=== PATIENT | male | born 1955 | race Caucasian/White ===

== ENCOUNTER 2019-04-12 09:48 | Emergency (ER) | payer MEDICARE ==
[~2019-04-12] VITALS: Ht 167.6 cm; Wt 90.9 kg
[2019-04-12] MEDS ORDERED: MELO-107 PO (10:15)
[2019-04-12] MEDS ORDERED: HYDR25TA PO (10:15)
[2019-04-12] MEDS ORDERED: KETOROLAC TROMETHAMINE 30 MG/ML VIAL IM ONE (12:30)
[2019-04-12] MEDS ORDERED: LIDOCAINE 5% TRANSDERMAL PATCH TD ONE (12:30)
[2019-04-12 14:45] VITALS: BP 136/89
== END 2019-04-12 15:10 | disposition home or self-care (01) ==
LOC: EMS 09:49
DX: S80.02XA Contusion of left knee, initial encounter (principal); I10 Essential (primary) hypertension; F17.210 Nicotine dependence, cigarettes, uncomplicated; Z79.899 Other long term (current) drug therapy; W01.0XXA Fall on same level from slipping, tripping and stumbling without subsequent striking against object, initial encounter; Y93.89 Activity, other specified; Y92.89 Other specified places as the place of occurrence of the external cause; Y99.8 Other external cause status
CPT/HCPCS: 29505; 73562; 96372; 99283; J1885

== ENCOUNTER 2021-04-20 09:15 | Emergency (ER) | payer MEDICARE ==
[~2021-04-20] VITALS: Ht 172.7 cm; Wt 86.4 kg
[~2021-04-20 09:15] MED LIST: HYDR25TA2 PO; MELO-107 PO
[2021-04-20 12:20] VITALS: BP 128/94
== END 2021-04-20 12:22 | disposition home or self-care (01) ==
LOC: EMS 09:15
DX: L03.114 Cellulitis of left upper limb (principal); L30.9 Dermatitis, unspecified; I10 Essential (primary) hypertension; F17.210 Nicotine dependence, cigarettes, uncomplicated; Z79.899 Other long term (current) drug therapy
CPT/HCPCS: 99283; Z7502

== ENCOUNTER 2023-07-04 10:37 | Emergency (ER) | payer MEDICARE ==
[~2023-07-04] VITALS: Ht 170.2 cm; Wt 90.9 kg
[2023-07-04 11:06] VITALS: BP 135/72; PULSE 103; RESP 16; TEMP 97.9
[2023-07-04] MEDS ORDERED: CEPH-558 PO (13:01)
[2023-07-04] MEDS ORDERED: DIPH25CA85 PO (13:02)
[2023-07-04] MEDS ORDERED: METH4TAB3 PO (13:02)
== END 2023-07-04 13:17 | disposition home or self-care (01) ==
LOC: EMS 10:37
DX: S60.931A Unspecified superficial injury of right thumb, initial encounter (principal); L20.9 Atopic dermatitis, unspecified; I10 Essential (primary) hypertension; F17.210 Nicotine dependence, cigarettes, uncomplicated; Z98.890 Other specified postprocedural states; X58.XXXA Exposure to other specified factors, initial encounter; Y93.89 Activity, other specified; Y92.89 Other specified places as the place of occurrence of the external cause; Y99.8 Other external cause status
CPT/HCPCS: 99283

== ENCOUNTER 2024-07-17 15:28 | Emergency (ER) | payer MEDICARE ==
[~2024-07-17] VITALS: Ht 170.2 cm; Wt 55.0 kg
[~2024-07-17 15:28] MED LIST changes: +CEPH-558 PO; +DIPH25CA85 PO; +METH4TAB3 PO
[2024-07-17 15:45] VITALS: TEMP 98.1
[2024-07-17] MEDS ORDERED: PROP10DR15 OU (16:29)
[2024-07-17] MEDS ORDERED: OLOP2.5D16 OU (16:29)
[2024-07-17] MEDS: PredniSONE 20 MG TABLET PO ONE (16:36)
[2024-07-17] MEDS: BACITRACIN 28 GM OINTMENT TP ONE (16:36)
[2024-07-17] MEDS: DiphenhydrAMINE HCL 25 MG CAPSULE PO ONE (16:36)
[2024-07-17] MEDS ORDERED: DIPH-1243 PO (16:45)
[2024-07-17] MEDS ORDERED: BACI28.410 TP (16:45)
[2024-07-17 16:53] VITALS: BP 132/86; PULSE 86; RESP 16; O2SAT 98
== END 2024-07-17 16:55 | disposition home or self-care (01) ==
LOC: EMS 15:28
DX: L25.9 Unspecified contact dermatitis, unspecified cause (principal); I10 Essential (primary) hypertension; F17.210 Nicotine dependence, cigarettes, uncomplicated; Z79.899 Other long term (current) drug therapy; Z79.1 Long term (current) use of non-steroidal anti-inflammatories (NSAID); Z98.890 Other specified postprocedural states
CPT/HCPCS: 99283; J7512; 99284

== ENCOUNTER 2024-08-07 10:10 | Emergency (ER) | payer MEDICARE, OTHER ==
[~2024-08-07] VITALS: Ht 175.3 cm; Wt 99.5 kg
[2024-08-07 10:28] VITALS: BP 142/90; PULSE 94; RESP 16; TEMP 97.8; O2SAT 98
== END 2024-08-07 14:08 | disposition left against medical advice (07) ==
LOC: EMS 10:16
DX: M79.641 Pain in right hand (principal); M79.642 Pain in left hand; Z53.21 Procedure and treatment not carried out due to patient leaving prior to being seen by health care provider

== ENCOUNTER → 2024-08-07 | Emergency (ER) | payer MEDICARE, OTHER ==
[~2024-08-07] VITALS: Ht 165.1 cm; Wt 90.0 kg
[~2024-08-07] MED LIST changes: +BACI28.410 TP; -CEPH-558 PO; +DIPH-1243 PO; -DIPH25CA85 PO; -HYDR25TA2 PO; -MELO-107 PO; -METH4TAB3 PO; +OLOP2.5D16 OU; +PROP10DR15 OU
[2024-08-07 14:23] VITALS: BP 142/90; PULSE 84; RESP 18; TEMP 97.3; O2SAT 96
== END | disposition home or self-care (01) ==
LOC: EMS 14:17
DX: R21 Rash and other nonspecific skin eruption (principal); Z53.21 Procedure and treatment not carried out due to patient leaving prior to being seen by health care provider

== ENCOUNTER 2024-09-18 11:21 | Emergency (ER) | payer MEDICARE, OTHER ==
[~2024-09-18] VITALS: Ht 170.2 cm; Wt 86.4 kg
[2024-09-18 11:55] VITALS: TEMP 97.4
[2024-09-18 12:49] LABS: HEMATOCRIT 46.9 % (41-53); HEMOGLOBIN 16.1 g/dL (13.5-17.5); LYMPHOCYTES # (AUTO) 1.1 K/uL (1.0-4.8); MEAN CORPUSCULAR HEMOGLOBIN 34.9 pg (26.0-34.0); MEAN CORPUSCULAR HGB CONC 34.3 G/dL (31.0-37.0); MEAN CORPUSCULAR VOLUME 102 fL (80-100); MONOCYTES # (AUTO) 1.1 K/uL (0.1-1.0); MONOCYTES % (AUTO) 13.6 % (2.0-9.0); NEUTROPHILS % (AUTO) 63.4 % (40.0-70.0); PLATELET COUNT (AUTO) 178 K/uL (150-450); RED BLOOD CELL COUNT(AUTO) 4.62 MIL/uL (4.50-5.90); RED CELL DISTRIBUTION WIDTH 13.8 % (11.5-14.5)
[2024-09-18 12:56] LABS: ANION GAP 8 mmol/L (8-16); CALCIUM, TOTAL 8.9 mg/dL (8.8-10.5); CARBON DIOXIDE 27 mmol/L (22-29); CHLORIDE 111 mmol/L (98-107); CREATININE 0.75 mg/dL (0.60-1.30); ERYTHROCYTE SEDIMENTATION RATE 19 MM/HR (0-20); GLOMERULAR FILTR. RATE CALC > 60 mL/min (>60); GLUCOSE,RANDOM 132 mg/dL (70-110); POTASSIUM 3.9 mmol/L (3.5-5.1); SODIUM SERUM 146 mmol/L (136-145); UREA NITROGEN, BLOOD 10 mg/dL (7-18)
[2024-09-18] MEDS ORDERED: CEPH-558 PO (15:34)
[2024-09-18] MEDS ORDERED: DIPH-1243 PO (15:34)
[2024-09-18] MEDS: DiphenhydrAMINE HCL 25 MG CAPSULE PO ONE (16:04)
[2024-09-18] MEDS: CEPHALEXIN MONOHYDRATE 500 MG CAPSULE PO ONE (16:04)
[2024-09-18 16:07] VITALS: BP 122/65; PULSE 87; RESP 18; O2SAT 98
[2024-09-18 17:45] LABS: C-REACTIVE PROTEIN QUANT 2.55 mg/dL (0.00-0.30)
== END 2024-09-18 16:18 | disposition home or self-care (01) ==
LOC: EMS 11:21
DX: L20.9 Atopic dermatitis, unspecified (principal); I10 Essential (primary) hypertension; F17.210 Nicotine dependence, cigarettes, uncomplicated
CPT/HCPCS: 80048; 85025; 85651; 86140; 99283

== ENCOUNTER 2024-11-09 15:25 | Emergency (ER) | payer MEDICARE, OTHER ==
[~2024-11-09] VITALS: Ht 170.2 cm; Wt 82.3 kg
[~2024-11-09 15:25] MED LIST changes: +CEPH-558 PO
[2024-11-09 15:40] VITALS: BP 125/85; PULSE 100; RESP 18; TEMP 98.2; O2SAT 99
[2024-11-09] MEDS ORDERED: BETA60L TD (15:43)
[2024-11-09] MEDS ORDERED: AMLO-143 PO (15:43)
[2024-11-09] MEDS ORDERED: LORA10TA7 PO (15:43)
== END 2024-11-09 18:30 | disposition left against medical advice (07) ==
LOC: EMS 15:27
DX: L08.9 Local infection of the skin and subcutaneous tissue, unspecified (principal); Z53.21 Procedure and treatment not carried out due to patient leaving prior to being seen by health care provider
CPT/HCPCS: 99281; Z7502

== ENCOUNTER 2024-11-11 11:34 | Emergency (ER) | payer MEDICARE, OTHER ==
[~2024-11-11] VITALS: Ht 167.6 cm; Wt 82.3 kg
[~2024-11-11 11:34] MED LIST changes: +AMLO-143 PO; -BACI28.410 TP; +BETA60L TD; -CEPH-558 PO; -DIPH-1243 PO; +LORA10TA7 PO
[2024-11-11 11:43] VITALS: BP 134/88; PULSE 72; RESP 16; TEMP 97.9; O2SAT 97
[2024-11-11] MEDS: KETOROLAC TROMETHAMINE 60 MG/2 ML VIAL IM ONE (14:15)
[2024-11-11] MEDS: DOXYCYCLINE HYCLATE 100 MG TABLET PO ONE (14:16)
[2024-11-11] MEDS: CEPHALEXIN MONOHYDRATE 500 MG CAPSULE PO ONE (14:16)
[2024-11-11] MEDS: ACETAMINOPHEN 500 MG TABLET PO ONE (14:16)
[2024-11-11] MEDS: methocarbamoL 500 MG TABLET PO ONE (14:16)
[2024-11-11] MEDS ORDERED: METH-812 PO (14:26)
[2024-11-11] MEDS ORDERED: ACET-66 PO (14:26)
[2024-11-11] MEDS ORDERED: IBUP-1554 PO (14:26)
[2024-11-11] MEDS ORDERED: DOXY-354 PO (14:26)
[2024-11-11] MEDS ORDERED: CEPH-558 PO (14:26)
== END 2024-11-11 15:02 | disposition home or self-care (01) ==
LOC: EMS 11:34
DX: L03.115 Cellulitis of right lower limb (principal); L20.9 Atopic dermatitis, unspecified; G89.29 Other chronic pain; M54.50 Low back pain, unspecified; I10 Essential (primary) hypertension; F17.210 Nicotine dependence, cigarettes, uncomplicated; Z98.890 Other specified postprocedural states; Z79.899 Other long term (current) drug therapy
CPT/HCPCS: 99283; 96372; J1885

== ENCOUNTER 2024-12-22 10:36 | Emergency (ER) | payer MEDICARE, OTHER ==
[~2024-12-22] VITALS: Ht 170.2 cm; Wt 78.6 kg
[~2024-12-22 10:36] MED LIST changes: +ACET-66 PO; +CEPH-558 PO; +DOXY-354 PO; +IBUP-1554 PO; +METH-812 PO
[2024-12-22 10:40] VITALS: TEMP 98.1
[2024-12-22 12:02] LABS: PLATELET COUNT (AUTO) 303 K/uL (150-450); RED BLOOD CELL COUNT(AUTO) 4.13 MIL/uL (4.50-5.90); RED CELL DISTRIBUTION WIDTH 14.2 % (11.5-14.5); WHITE BLOOD COUNT (AUTO) 6.7 K/uL (4.5-11.0)
[2024-12-22 12:11] LABS: CALCIUM, TOTAL 9.4 mg/dL (8.8-10.5); CREATININE 1.03 mg/dL (0.60-1.30); GLOMERULAR FILTR. RATE CALC > 60 mL/min (>60); GLUCOSE,RANDOM 94 mg/dL (70-110); SODIUM SERUM 141 mmol/L (136-145); UREA NITROGEN, BLOOD 14 mg/dL (7-18)
[2024-12-22] MEDS: CLINDAMYCIN PHOS 150 MG/ML 4 ML VIAL IM ONE (15:10)
[2024-12-22] MEDS ORDERED: CLIN-142 PO (15:59)
[2024-12-22 16:10] VITALS: BP 122/86; PULSE 90; RESP 18; O2SAT 98
[2024-12-23] MEDS ORDERED: TRIA60LO12 TP (11:45)
== END 2024-12-22 16:12 | disposition left against medical advice (07) ==
LOC: EMS 10:46
DX: L03.115 Cellulitis of right lower limb (principal); I10 Essential (primary) hypertension; F17.210 Nicotine dependence, cigarettes, uncomplicated; Z53.29 Procedure and treatment not carried out because of patient's decision for other reasons; Z79.899 Other long term (current) drug therapy; X58.XXXA Exposure to other specified factors, initial encounter; Y93.89 Activity, other specified; Y92.89 Other specified places as the place of occurrence of the external cause; Y99.8 Other external cause status
CPT/HCPCS: 99283; 80048; 85025; 36415; 73630; 96372; J3490

== ENCOUNTER 2024-12-23 08:26 | Inpatient (IN) | payer MEDICARE ==
[~2024-12-23] VITALS: Ht 170.2 cm; Wt 77.3 kg
[~2024-12-23 08:26] MED LIST changes: -CEPH-558 PO; +CLIN-142 PO; -DOXY-354 PO; -IBUP-1554 PO; -METH-812 PO
[2024-12-23 09:20] LABS: PLATELET COUNT (AUTO) 287 K/uL (150-450); RED BLOOD CELL COUNT(AUTO) 4.15 MIL/uL (4.50-5.90); RED CELL DISTRIBUTION WIDTH 14.1 % (11.5-14.5); WHITE BLOOD COUNT (AUTO) 7.0 K/uL (4.5-11.0)
[2024-12-23] MEDS: VANCOMYCIN 1GM/WATER(PEG/NADA) 200 ML IV ONE (09:23)
[2024-12-23 09:24] LABS: CALCIUM, TOTAL 9.0 mg/dL (8.8-10.5); CREATININE 0.98 mg/dL (0.60-1.30); GLOMERULAR FILTR. RATE CALC > 60 mL/min (>60); GLUCOSE,RANDOM 95 mg/dL (70-110); SODIUM SERUM 140 mmol/L (136-145); UREA NITROGEN, BLOOD 15 mg/dL (7-18)
[2024-12-23 09:29] LABS: ASPARTATE AMINOTRANSFERASE 17 U/L (15-37); TOTAL PROTEIN, SERUM 7.4 g/dL (6.4-8.2)
[2024-12-23 09:30] LABS: ERYTHROCYTE SEDIMENTATION RATE 50 MM/HR (0-20)
[2024-12-23 09:50] LABS: C-REACTIVE PROTEIN QUANT 1.97 mg/dL (0.00-0.30)
[2024-12-23] MEDS ORDERED: TRIA60LO12 TP (11:45)
[2024-12-23 13:23] VITALS: BP 143/90; PULSE 95; RESP 18; TEMP 97.5; O2SAT 100
[2024-12-23] MEDS ORDERED: MAGNESIUM HYDROXIDE SUSPENSION 30 ML UDCUP PO PRN (14:00)
[2024-12-23] MEDS ORDERED: ONDANSETRON HCL 4 MG/2 ML VIAL IVP PRN (14:00)
[2024-12-23] MEDS ORDERED: BISACODYL 10 MG RECTAL RECTAL SUPPOSITORY PR PRN (14:00)
[2024-12-23] MEDS ORDERED: ZOLPIDEM TARTRATE 5 MG TABLET PO PRN (14:00)
[2024-12-23] MEDS ORDERED: MORPHINE SULFATE 2 MG/ML SYRINGE IVP PRN (14:00)
[2024-12-23] MEDS ORDERED: HYDROCODONE/ACETAMINOPHEN 5-325 MG TABLET PO PRN (14:00)
[2024-12-23] MEDS: HEPARIN SODIUM,PORCINE 5,000 UNITS/ML VIAL SQ SCH (15:13)
[2024-12-23] MEDS ORDERED: SODIUM CHLORIDE 0.9% 250 ML IV ONE (15:24)
[2024-12-23] MEDS: PIPERACILLIN/TAZO 3.375 GM/D5W 50 ML IV SCH (15:35)
[2024-12-23 16:56] VITALS: RESP 18
[2024-12-23] MEDS: VANCOMYCIN 1GM/WATER(PEG/NADA) 200 ML IV SCH (19:36)
[2024-12-23] MEDS: TRIAMCINOLONE 0.025% 60 ML LOTION TP SCH (20:02)
[2024-12-23] MEDS: DOCUSATE SODIUM 100 MG CAPSULE PO SCH (20:03)
[2024-12-23 20:13] VITALS: BP 122/81; PULSE 89; RESP 18; TEMP 97.9; O2SAT 100
[2024-12-24 03:37] VITALS: BP 143/89; PULSE 84; RESP 19; TEMP 97.7; O2SAT 99
[2024-12-24] MEDS: ACETAMINOPHEN 325 MG TABLET PO PRN (03:41)
[2024-12-24 07:17] LABS: CALCIUM, TOTAL 8.6 mg/dL (8.8-10.5); CREATININE 1.02 mg/dL (0.60-1.30); GLOMERULAR FILTR. RATE CALC > 60 mL/min (>60); GLUCOSE,RANDOM 87 mg/dL (70-110); SODIUM SERUM 139 mmol/L (136-145); UREA NITROGEN, BLOOD 11 mg/dL (7-18)
[2024-12-24 07:20] LABS: PLATELET COUNT (AUTO) 253 K/uL (150-450); RED BLOOD CELL COUNT(AUTO) 3.91 MIL/uL (4.50-5.90); RED CELL DISTRIBUTION WIDTH 14.3 % (11.5-14.5); WHITE BLOOD COUNT (AUTO) 4.8 K/uL (4.5-11.0)
[2024-12-24] MEDS: PANTOPRAZOLE SODIUM 40 MG DR TABLET PO SCH (08:53)
[2024-12-24] MEDS: BETAMETHASONE DIP 0.05% TP SCH (08:54)
[2024-12-24 09:00] VITALS: BP 137/80; PULSE 69; RESP 19; TEMP 97.9; O2SAT 99
[2024-12-24] MEDS ORDERED: GADOTERATE MEGLUMINE 10 MMOL/20 ML VIAL IVP ONE (10:24)
[2024-12-24 15:52] VITALS: BP 130/70; PULSE 71; RESP 18; TEMP 97.7; O2SAT 98
[2024-12-24 20:03] VITALS: BP 134/84; PULSE 88; RESP 18; TEMP 97.9; O2SAT 100
[2024-12-24] MEDS ORDERED: SODIUM CHLORIDE 0.9% 500 ML IV ONE (22:22)
[2024-12-25 04:23] VITALS: BP 123/76; PULSE 85; RESP 18; TEMP 97.9; O2SAT 100
[2024-12-25 06:49] LABS: PLATELET COUNT (AUTO) 246 K/uL (150-450); RED BLOOD CELL COUNT(AUTO) 3.84 MIL/uL (4.50-5.90); RED CELL DISTRIBUTION WIDTH 14.3 % (11.5-14.5); WHITE BLOOD COUNT (AUTO) 5.3 K/uL (4.5-11.0)
[2024-12-25 07:04] LABS: CALCIUM, TOTAL 9.0 mg/dL (8.8-10.5); CREATININE 0.97 mg/dL (0.60-1.30); GLOMERULAR FILTR. RATE CALC > 60 mL/min (>60); GLUCOSE,RANDOM 92 mg/dL (70-110); SODIUM SERUM 141 mmol/L (136-145); UREA NITROGEN, BLOOD 10 mg/dL (7-18)
[2024-12-25 08:00] VITALS: BP 135/107; PULSE 89; RESP 18; TEMP 97.9; O2SAT 100
[2024-12-25 15:15] VITALS: BP 133/92; PULSE 87; RESP 18; TEMP 97.5; O2SAT 99
[2024-12-25 20:20] VITALS: BP 145/95; PULSE 77; RESP 18; TEMP 97.5; O2SAT 99
[2024-12-25 20:38] LABS: APPEARANCE,URINE CLEAR (CLEAR); GLUCOSE, URINE (UA) NEGATIVE (NEGATIVE); LEUKOCYTE ESTERASE ,URINE NEGATIVE (NEGATIVE); NITRATE,URINE NEGATIVE (NEGATIVE); OCCULT BLOOD,URINE MODERATE (NEGATIVE); SPECIFIC GRAVITIY, URINE 1.014 (1.003-1.030)
[2024-12-25 20:50] LABS: SQUAMOUS EPITHELIAL CELL,UR Rare /LPF (None Seen)
[2024-12-26 05:49] VITALS: BP 140/98; PULSE 85; RESP 18; TEMP 97.6; O2SAT 99
[2024-12-26 07:17] LABS: PLATELET COUNT (AUTO) 253 K/uL (150-450); RED BLOOD CELL COUNT(AUTO) 3.68 MIL/uL (4.50-5.90); RED CELL DISTRIBUTION WIDTH 14.1 % (11.5-14.5); WHITE BLOOD COUNT (AUTO) 6.1 K/uL (4.5-11.0)
[2024-12-26 07:31] LABS: CALCIUM, TOTAL 8.3 mg/dL (8.8-10.5); CREATININE 0.97 mg/dL (0.60-1.30); GLOMERULAR FILTR. RATE CALC > 60 mL/min (>60); GLUCOSE,RANDOM 87 mg/dL (70-110); SODIUM SERUM 141 mmol/L (136-145); UREA NITROGEN, BLOOD 7 mg/dL (7-18)
[2024-12-26 08:37] VITALS: BP 129/95; PULSE 93; RESP 18; TEMP 97.7; O2SAT 98
[2024-12-26] MEDS ORDERED: AMOX-457 PO (13:01)
== END 2024-12-26 13:50 | disposition home or self-care (01) | DRG 540 ==
LOC: EMS 08:26 → EDH 11:37 → 6S 13:52
PROVIDERS: ADMIT Internal Medicine; ATTEND Internal Medicine
DX: M86.8X7 Other osteomyelitis, ankle and foot (principal); L03.115 Cellulitis of right lower limb; I10 Essential (primary) hypertension; L20.9 Atopic dermatitis, unspecified; K59.00 Constipation, unspecified; Z87.891 Personal history of nicotine dependence
CPT/HCPCS: 73720; 80048; 80053; 80202; 81001; 84550; 85025; 85651; 86140; 87040; 93971; 96365; 99285; J1644; J2543; J7040; J7050